=== PATIENT | female | born 1950 | race Asian ===

== ENCOUNTER 2018-05-24 12:49 | Emergency (ER) | payer MEDICARE ==
[~2018-05-24] VITALS: Ht 157.5 cm; Wt 67.9 kg
[2018-05-24] MEDS ORDERED: DIAZEPAM 5 MG TABLET ONE (13:19)
[2018-05-24] MEDS ORDERED: KETOROLAC 30 MG/1 ML ONE (13:19)
[2018-05-24] MEDS ORDERED: DIAZEPAM 5 MG TABLET PO ONE (13:30)
[2018-05-24] MEDS ORDERED: KETOROLAC 30 MG/1 ML IM ONE (13:30)
[2018-05-24 14:50] VITALS: BP 103/69
== END 2018-05-24 15:22 | disposition home or self-care (01) ==
LOC: ED 15:16
DX: S39.012A Strain of muscle, fascia and tendon of lower back, initial encounter (principal); S76.012A Strain of muscle, fascia and tendon of left hip, initial encounter; W18.30XA Fall on same level, unspecified, initial encounter; Y93.89 Activity, other specified; Y99.8 Other external cause status; Y92.009 Unspecified place in unspecified non-institutional (private) residence as the place of occurrence of the external cause
CPT/HCPCS: 72110; 99284

== ENCOUNTER → 2018-07-12 | Outpatient (CLI) | payer MEDICARE | END | disposition home or self-care (01) | LOC: CFH 08:12 | PROVIDERS: ATTEND Family Medicine | DX: M51.36 Other intervertebral disc degeneration, lumbar region (principal); M48.061 Spinal stenosis, lumbar region without neurogenic claudication | CPT/HCPCS: 72148 ==

== ENCOUNTER → 2018-07-16 | Outpatient (CLI) | payer MEDICARE ==
[~2018-07-16] MED LIST: OMNIPAQUE 350 MG/ML, 100ML BOTTLE ONE
== END | disposition home or self-care (01) ==
LOC: CFH 08:58
PROVIDERS: ATTEND Physician Assistant Medical
DX: R10.9 Unspecified abdominal pain (principal); R11.2 Nausea with vomiting, unspecified; K21.9 Gastro-esophageal reflux disease without esophagitis; M19.90 Unspecified osteoarthritis, unspecified site
CPT/HCPCS: 74177; Q9967

== ENCOUNTER 2018-08-02 02:31 | Emergency (ER) | payer MEDICARE ==
[~2018-08-02] VITALS: Ht 157.5 cm; Wt 67.9 kg
[2018-08-02 02:44] VITALS: BP 145/85
[2018-08-02] MEDS ORDERED: DOXY100C2 PO (03:14)
[2018-08-02] MEDS ORDERED: MECL-76 PO (03:14)
[2018-08-02] MEDS ORDERED: NABU750T PO (03:14)
[2018-08-02] MEDS ORDERED: OMEP-110 PO (03:14)
[2018-08-02] MEDS ORDERED: BISM262T7 PO (03:14)
[2018-08-02] MEDS ORDERED: TIZA4TAB PO (03:14)
[2018-08-02] MEDS ORDERED: CALC1CAP8 PO (03:14)
[2018-08-02] MEDS ORDERED: FOLI1TAB7 PO (03:14)
[2018-08-02] MEDS ORDERED: METR500T8 PO (03:14)
[2018-08-02] MEDS ORDERED: ALEN70TA5 PO (03:14)
[2018-08-02] MEDS ORDERED: TRAM50TA2 PO (03:14)
[2018-08-02 03:28] LABS: BASOPHILS # (AUTO) 0.02 x10^3/uL (0-0.1); BASOPHILS % (AUTO) 0 % (0-1); EOSINOPHILS # (AUTO) 0.09 x10^3/uL (0-0.4); EOSINOPHILS % (AUTO) 1 % (1-7); LYMPHOCYTES # (AUTO) 1.64 x10^3/uL (1-3.4); LYMPHOCYTES % (AUTO) 21 % (22-44); MD NO; MEAN CORPUSCULAR HEMOGLOBIN 29.6 pg (27.0-34.8); MEAN CORPUSCULAR HGB CONC 33.1 g/dL (32.4-35.8); MEAN CORPUSCULAR VOLUME 89.4 fL (80-100); MEAN PLATELET VOLUME 8.7 fL (7.4-10.4); MONOCYTES # (AUTO) 0.55 x10^3/uL (0.2-0.8); MONOCYTES % (AUTO) 7 % (2-9); NEUTROPHILS # (AUTO) 5.38 x10^3/uL (1.8-6.8); NEUTROPHILS % (AUTO) 70 % (42-75); PLATELET COUNT 229 x10^3/uL (130-400); RED BLOOD COUNT 4.68 x10^6/uL (3.82-5.3); RED CELL DISTRIBUTION WIDTH 14.9 % (9.6-15.2)
[2018-08-02] MEDS ORDERED: SODIUM CHLORIDE FLUSH 10ML SYR IVF ONE (03:30)
[2018-08-02] MEDS ORDERED: PROCHLORPERAZINE 5 MG/ML, 2ML ONE (03:30)
[2018-08-02] MEDS ORDERED: DIPHENHYDRAMINE 50 MG/ML, 1ML IVPush ONE (03:30)
[2018-08-02] MEDS ORDERED: DIPHENHYDRAMINE 50 MG/ML, 1ML ONE (03:30)
[2018-08-02] MEDS ORDERED: KETOROLAC 30 MG/1 ML ONE (03:30)
[2018-08-02] MEDS ORDERED: KETOROLAC 30 MG/1 ML IVPush ONE (03:30)
[2018-08-02] MEDS ORDERED: PROCHLORPERAZINE 5 MG/ML, 2ML IVPush ONE (03:30)
[2018-08-02 03:39] LABS: ALBUMIN 3.7 g/dL (3.4-5.0); ANION GAP 11 mmol/L (5-15); CALCIUM 8.8 mg/dL (8.5-10.1); CHLORIDE 108 mmol/L (98-107); CREATININE 0.82 mg/dL (0.55-1.02)
== END 2018-08-02 04:38 | disposition home or self-care (01) ==
LOC: ED 03:01
DX: R51 Headache (principal); R11.2 Nausea with vomiting, unspecified; Z87.891 Personal history of nicotine dependence
CPT/HCPCS: 36415; 70450; 80048; 82040; 85025; 96374; 96375; 99285; J0780; J1200; J1885

== ENCOUNTER → 2018-09-17 | Outpatient (CLI) | payer MEDICARE ==
[~2018-09-17] MED LIST changes: +ALEN70TA5 PO; +BISM262T7 PO; +CALC1CAP8 PO; +DOXY100C2 PO; +FOLI1TAB7 PO; +MECL-76 PO; +METR-142 PO; +NABU750T PO; +OMEP-110 PO; -OMNIPAQUE 350 MG/ML, 100ML BOTTLE ONE; +TIZA4TAB PO; +TRAM50TA2 PO
== END | disposition home or self-care (01) ==
LOC: CFH 15:06
PROVIDERS: ATTEND Student in an Organized Health Care Education/Training Program
DX: M48.54XA Collapsed vertebra, not elsewhere classified, thoracic region, initial encounter for fracture (principal); M51.14 Intervertebral disc disorders with radiculopathy, thoracic region
CPT/HCPCS: 72146

== ENCOUNTER → 2018-11-05 | Outpatient (CLI) | payer MEDICARE ==
[~2018-11-05] MED LIST changes: -ALEN70TA5 PO; +ALEN70TA6 PO; +CENTRUM CHEWAB1 EACH PO; -FOLI1TAB7 PO; -METR-142 PO; +METR-90 PO
== END | disposition home or self-care (01) ==
LOC: CFH 15:55
PROVIDERS: ATTEND Orthopaedic Surgery Orthopaedic Surgery of the Spine
DX: M51.36 Other intervertebral disc degeneration, lumbar region (principal); M51.26 Other intervertebral disc displacement, lumbar region; M48.04 Spinal stenosis, thoracic region; M48.061 Spinal stenosis, lumbar region without neurogenic claudication; G95.29 Other cord compression; M43.8X4 Other specified deforming dorsopathies, thoracic region; M89.38 Hypertrophy of bone, other site
CPT/HCPCS: 72148

== ENCOUNTER 2018-12-22 05:28 | Inpatient (IN) | payer MEDICARE ==
[~2018-12-22] VITALS: Ht 157.5 cm; Wt 67.0 kg
[~2018-12-22 05:28] MED LIST changes: +AMIT25TA PO; +CHOL2000 PO
[2018-12-22 05:59] VITALS: BP 129/82
[2018-12-22] MEDS ORDERED: LACTATED RINGERS 1,000 ML IV SCH (06:02)
[2018-12-22] MEDS ORDERED: MECL12.52 PO (06:29)
[2018-12-22] MEDS ORDERED: BUPIVACAINE/PF-EPI 0.5% 1:200K ONE (06:50)
[2018-12-22] MEDS ORDERED: MIDAZOLAM 1 MG/ML, 2ML ONE (06:59)
[2018-12-22] MEDS ORDERED: FENTANYL PF 250 MCG/5ML ONE (06:59)
[2018-12-22] MEDS ORDERED: ONDANSETRON 2MG/ML, 2ML ONE (07:44)
[2018-12-22] MEDS ORDERED: DEXAMETHASONE 4 MG/ML, 1ML ONE (07:44)
[2018-12-22] MEDS ORDERED: PROPOFOL 10 MG/ML, 20ML ONE (07:44)
[2018-12-22] MEDS ORDERED: ROCURONIUM 10 MG/ML,10ML ONE (07:44)
[2018-12-22] MEDS ORDERED: SUCCINYLCHOLINE 20 MG/ML, 10ML ONE (07:44)
[2018-12-22] MEDS ORDERED: OMNIPAQUE 180 MG/ML, 20ML VIAL IT ONE ×2 (08:20)
[2018-12-22] MEDS ORDERED: BUPIVACAINE/PF-EPI 0.5% 1:200K INFIL ONE (08:20)
[2018-12-22] MEDS ORDERED: LABETALOL 5MG/ML, 20ML IV PRN (08:30)
[2018-12-22] MEDS ORDERED: ALBUTEROL SULFATE 2.5 MG/3 ML NPPB PRN (08:30)
[2018-12-22] MEDS ORDERED: OXYcodone 5 MG/5 ML ORAL.SOL UDC PO PRN (08:30)
[2018-12-22] MEDS ORDERED: METOCLOPRAMIDE 5 MG/ML, 2ML IV PRN (08:30)
[2018-12-22] MEDS ORDERED: FENTANYL PF 100 MCG/2ML IV PRN (08:30)
[2018-12-22] MEDS ORDERED: MEPERIDINE/PF 25MG/0.5ML IVPush PRN (08:30)
[2018-12-22] MEDS ORDERED: KETOROLAC 30 MG/1 ML IV PRN (08:30)
[2018-12-22] MEDS ORDERED: ONDANSETRON 2MG/ML, 2ML IVPush PRN (08:30)
[2018-12-22] MEDS ORDERED: hydrALAzine 20 MG/ML, 1ML IV PRN (08:30)
[2018-12-22] MEDS ORDERED: PROMETHAZINE 25 MG/ML, 1ML IV PRN (08:30)
[2018-12-22] MEDS ORDERED: HYDROmorphone 1 MG/ML, 1ML AMP IV PRN (08:30)
[2018-12-22] MEDS ORDERED: OXYcodone 5 MG/5 ML ORAL.SOL UDC ONE (09:57)
== END 2018-12-22 13:35 | disposition home or self-care (01) | DRG 516 ==
LOC: ORIP 05:28
PROVIDERS: ADMIT Neurological Surgery; ATTEND Neurological Surgery
PROC: 0PU43JZ Supplement Thoracic Vertebra with Synthetic Substitute, Percutaneous Approach (ICD-10-PCS; 2018-12-22)
PROC: 0PS43ZZ Reposition Thoracic Vertebra, Percutaneous Approach (ICD-10-PCS; principal; 2018-12-22 07:30)
DX: M48.54XA Collapsed vertebra, not elsewhere classified, thoracic region, initial encounter for fracture (principal); M51.04 Intervertebral disc disorders with myelopathy, thoracic region; M19.90 Unspecified osteoarthritis, unspecified site; M51.36 Other intervertebral disc degeneration, lumbar region
CPT/HCPCS: 72072; 76000; 88307; 88311; C1713; J1100; J2250; J2405; J2704; J3010; Q9965; J0330; J7120

== ENCOUNTER → 2019-02-23 | Outpatient (CLI) | payer MEDICARE ==
[~2019-02-23] MED LIST changes: +MECL12.52 PO
== END | disposition home or self-care (01) ==
LOC: CFH 13:09
PROVIDERS: ATTEND Student in an Organized Health Care Education/Training Program
DX: M50.30 Other cervical disc degeneration, unspecified cervical region (principal); M48.02 Spinal stenosis, cervical region; M25.78 Osteophyte, vertebrae
CPT/HCPCS: 72050

== ENCOUNTER → 2019-03-07 | Outpatient (CLI) | payer MEDICARE | END | disposition home or self-care (01) | LOC: CFH 10:39 | PROVIDERS: ATTEND Neurological Surgery | DX: M48.061 Spinal stenosis, lumbar region without neurogenic claudication (principal); M51.36 Other intervertebral disc degeneration, lumbar region; Z98.890 Other specified postprocedural states | CPT/HCPCS: 72110 ==

== ENCOUNTER 2020-07-09 13:50 | Emergency (ER) | payer MEDICARE ==
[~2020-07-09] VITALS: Ht 157.5 cm; Wt 67.0 kg
[~2020-07-09 13:50] MED LIST changes: -MECL12.52 PO; +MECL12.581 PO; -TIZA4TAB PO; +TIZA4TAB2 PO
[2020-07-09] MEDS ORDERED: SODIUM CHLORIDE FLUSH 10ML SYR IVF ONE (14:30)
[2020-07-09 14:37] LABS: MICROSCOPIC AUTO
[2020-07-09 15:30] LABS: BASOPHILS % (AUTO) 1 % (0-1); EOSINOPHILS % (AUTO) 1 % (1-7); LYMPHOCYTES % (AUTO) 27 % (22-44); MEAN CORPUSCULAR HEMOGLOBIN 29.6 pg (27.0-34.8); MEAN CORPUSCULAR HGB CONC 32.8 g/dL (32.4-35.8); MEAN PLATELET VOLUME 8.9 fL (7.4-10.4); MONOCYTES % (AUTO) 7 % (2-9); NEUTROPHILS % (AUTO) 65 % (42-75); PLATELET COUNT 234 x10^3/uL (130-400); RED BLOOD COUNT 5.17 x10^6/uL (3.82-5.3); RED CELL DISTRIBUTION WIDTH 14.9 % (9.6-15.2)
[2020-07-09 15:32] LABS: MD NO
[2020-07-09 15:40] LABS: ANION GAP 4 mmol/L (5-15); CALCIUM 9.4 mg/dL (8.5-10.1); CHLORIDE 107 mmol/L (98-107)
[2020-07-09 15:44] LABS: ALANINE AMINOTRANSFERASE 58 U/L (12-78); ALKALINE PHOSPHATASE 62 U/L (45-117); BILIRUBIN,TOTAL 0.4 mg/dL (0.2-1.0); CREATININE 0.97 mg/dL (0.55-1.02); TOTAL PROTEIN 8.1 g/dL (6.4-8.2)
--- NOTE | 2020-07-09 16:31 | NUR ---
CURTAIN MENDER: PT AMBULATORY TO ROOM WITH STEADY GAIT WITH WINDOWS SYSTEMS ARCHITECT AND FAMILY FROM LOBBY AT THIS TIME
[2020-07-09 16:38] VITALS: BP 144/79
== END 2020-07-09 18:10 | disposition home or self-care (01) ==
LOC: ED 18:00
DX: N30.00 Acute cystitis without hematuria (principal); Z87.891 Personal history of nicotine dependence
CPT/HCPCS: 36415; 76700; 80053; 81001; 83690; 85025; 87077; 87086; 87186; 99284

== ENCOUNTER 2020-08-01 10:27 | Outpatient (CLI) | payer MEDICARE ==
[2020-08-01] MEDS ORDERED: SINCALIDE (KINEVAC) 5 MCG ONE (11:47)
== END 2020-08-01 23:59 | disposition home or self-care (01) ==
LOC: RAD 10:27
PROVIDERS: ATTEND Surgery
DX: K82.8 Other specified diseases of gallbladder (principal); K83.9 Disease of biliary tract, unspecified
CPT/HCPCS: 78227; A9537; J2805

== ENCOUNTER → 2021-05-14 | Outpatient (CLI) | payer MEDICARE ==
[~2021-05-14] MED LIST changes: -ALEN70TA6 PO; +ALEN70TA77 PO; -MECL12.581 PO; +MECL12.590 PO; -NABU750T PO; +NABU750T11 PO
== END | disposition home or self-care (01) ==
LOC: CFH 14:00
PROVIDERS: ATTEND Family Medicine
DX: Z12.31 Encounter for screening mammogram for malignant neoplasm of breast (principal)
CPT/HCPCS: 77063; 77067